=== PATIENT | male | born 1955 | race Caucasian/White ===

== ENCOUNTER → 2016-05-08 | Outpatient (CLI) | payer MEDICARE ==
[2015-10-06 07:53] VITALS: BP 99/62
[~2016-05-08] MED LIST: ALBU0.635 IH; BUDE10.2 IH; BUPR300T4 PO; CETI10TA22 PO; DM H1CAP2 PO; GLUC1TAB68 PO; IPRA0.2S5 IH; METO10TA81 PO; MUCINEX DM; MULT-208 PO; NAPR250T2 PO; OMEP40CA5 PO; PROAIR HFA8.5 GM IH
--- NOTE | 2016-05-09 20:53 | SLEEP ---
DATE OF STUDY: 05/08/2016 ATTENDING PHYSICIAN: Yamila Stephens M.D. The patient is 61 years old who weighs 195 pounds with a BMI of 30. The patient's [place] score was 5. Sleep study was performed at [facility]. This was a split night study. During the night study, the patient spent 489 minutes in bed and slept for 409 minutes with a sleep efficiency of 84%. Sleep latency was 9 minutes with a REM latency of 46 minutes. Overall, sleep architecture showed there was increased stage I sleep, reduced stage II sleep, normal slow wave and normal REM sleep. During the initial diagnostic portion of the study, the patient slept for 161 minutes. During this time, there were 4 obstructive apneas, 15 mixed apneas, 44 hypopneas, 1 central apnea. The patient's apnea-hypopnea index was 37 per hour. Supine sleep was not seen during the diagnostic portion of the study. REM AHI was 40 per hour. Review of nocturnal oximetry study revealed a mean oxygen saturation of 92% with lowest of 77%. 21% of time oxygen saturation remained between 80% and 89%. EKG monitoring revealed normal sinus rhythm, average heart rate was 79 beats per minute, no sustained arrhythmias were observed. PLMS were seen at the index of 7 per hour, but only 1 per hour caused EEG arousals. The patient met the criteria for CPAP initiation. It was started at 5 cm of water and titrated up to 15 cm of water. The patient was unable to tolerate higher CPAP pressure. As a result, he was switched to BiPAP. BiPAP was started at 22/15 and titrated up to 24/18. The patient began to have some central apneas at the higher pressure. At the final pressure of 24/18, the patient's AHI was 24 per hour and they were all central apneas. At the lower pressure of 22/15, the patient slept for 27 minutes with an AHI of 17.5. Mostly mixed apneas were seen. The patient had supine as well as REM sleep on the final pressure of 24/18. The patient used a medium size full face mask. IMPRESSION: 1. Severe sleep apnea-hypopnea syndrome at an AHI of 37 per hour. 2. Nocturnal hypoxia secondary to obstructive sleep apnea, but resolved with BiPAP. 3. Mild PLMS without any significant EEG arousals. This does not need to be treated. RECOMMENDATIONS: 1. Optimum BiPAP pressure was not achieved. The patient reached a pressure of 24/18; however, at that pressure mostly central apneas were observed, which could be seen from rebound effect of BiPAP and I would recommend to keep the patient on BiPAP at 24/18. Central apneas do tend to improve over a period of time and a download information in 30-60 days would be very helpful in making any further adjustments. If only central apneas seen on download, BIPAP pressure can be reduced to 22/16. 2. Follow up in 4-6 weeks to assess compliance with BiPAP and to document clinical improvement. 3. Weight loss is strongly advised. 4. Avoid [employer] depressants. 5. Caution regarding driving until symptoms of sleep apnea resolve with the use of BiPAP. MELISSA AMADO MD DR: ASHWINI/marcial JOB#: [id number] / [id number] YAMILA Siu MD MTDD
== END | disposition home or self-care (01) ==
LOC: SLPLAB 18:38
PROVIDERS: ATTEND Family Medicine
DX: G47.33 Obstructive sleep apnea (adult) (pediatric) (principal)
CPT/HCPCS: 95810